=== PATIENT | male | born 1950 | race Caucasian/White ===

== ENCOUNTER 2018-10-28 10:58 | Emergency (ER) | payer BC, MEDICAID ==
[~2018-10-28] VITALS: Ht 190.5 cm; Wt 104.3 kg
[2018-10-28 11:56] LABS: Basophils # (auto) 0 uL; Eosinophils # (auto) 0 uL; Lymphocytes # (auto) 0.7 uL; Mean Corpuscular Hemoglobin 30.9 pg (28.0-32.0); Mean Corpuscular Volume 92.1 fL (80.0-100.0); Monocytes # (auto) 0.7 uL; Neutrophils # (auto) 8.9 uL; White Blood Cell 10.3 10^3/uL (4.4-10.8)
[2018-10-28 11:58] LABS: Basophils % (auto) 0.2 % (0.0-2.0); Eosinophils % (auto) 0.2 % (0.0-7.0); Hematocrit 53.8 % (41.0-53.0); Lymphocytes % (auto) 6.5 % (10.0-50.0); Mean Corpuscular Hgb Conc. 33.5 g/dL (32.0-36.0); Monocytes % (auto) 6.7 % (0.0-12.0); Neutrophils % (auto) 86.4 % (37.0-80.0); Nucleated Red Blood Cells % 0.4 %; Platelet Count (auto) 170 10^3/uL (140-450); Red Blood Cells 5.84 10^6/uL (4.5-5.90); Red Cell Distribution Width 13.3 % (11.8-14.3)
[2018-10-28 12:05] LABS: Urine Bacteria NONE SEEN /hpf (None Seen); Urine Blood TRACE /uL (Negative); Urine Hyaline Cast FEW /lpf (0 - 2); Urine Mucus FEW (None Seen); Urine Specific Gravity 1.029 (1.001-1.035); Urine WBC 1 /hpf (0 - 3)
[2018-10-28 12:09] LABS: Calcium 9.1 mg/dL (8.5-10.1)
[2018-10-28 12:12] LABS: BUN/Creatinine Ratio 10.2; Bilirubin, Total 1.1 mg/dL (0.2-1.0); Total Protein 8.7 g/dL (6.4-8.2)
[2018-10-28] MEDS ORDERED: KETOROLAC TROMETH 60MG/2ML VIAL IM ONE (16:45)
[2018-10-28 18:40] VITALS: BP 148/85
== END 2018-10-28 18:42 | disposition home or self-care (01) ==
LOC: ER 10:58
DX: M48.02 Spinal stenosis, cervical region (principal); M54.5 Low back pain; M62.838 Other muscle spasm; I25.2 Old myocardial infarction; E78.5 Hyperlipidemia, unspecified; Z86.73 Personal history of transient ischemic attack (TIA), and cerebral infarction without residual deficits
CPT/HCPCS: 36415; 71045; 72125; 80053; 81001; 84484; 85025; 93005; 96372; 99284; J1885

== ENCOUNTER 2022-04-01 19:31 | Emergency (ER) | payer BC ==
[~2022-04-01] VITALS: Ht 185.4 cm; Wt 106.6 kg
[2022-04-01] MEDS ORDERED: ASPirin 325 MG TAB PO ONE (20:00)
[2022-04-01 20:27] LABS: Basophils # (auto) 0.1 10 ^3/uL (0-0.2); Basophils % (auto) 0.8 % (0.0-2.0); Eosinophils # (auto) 0.3 10 ^3/uL (0-0.8); Hematocrit 45.3 % (41.0-53.0); Hemoglobin 15.9 g/dL (13.5-17.5); Lymphocytes # (auto) 1.7 10 ^3/uL (0.4-5.4); Lymphocytes % (auto) 18.8 % (10.0-50.0); Mean Corpuscular Hemoglobin 31.9 pg (28.0-32.0); Mean Corpuscular Hgb Conc. 35.1 g/dL (32.0-36.0); Mean Corpuscular Volume 90.9 fL (80.0-100.0); Monocytes # (auto) 0.6 10 ^3/uL (0-1.3); Monocytes % (auto) 6.7 % (0.0-12.0); Neutrophils # (auto) 6.5 10 ^3/uL (1.6-8.6); Neutrophils % (auto) 70.7 % (37.0-80.0); Red Blood Cells 4.98 10^6/uL (4.5-5.90); Red Cell Distribution Width 14.8 % (11.8-14.3); White Blood Cell 9.2 10^3/uL (4.4-10.8)
[2022-04-01 20:52] LABS: BUN/Creatinine Ratio 12.8; Magnesium 2.3 mg/dL (1.6-2.6)
[2022-04-01 20:55] LABS: Bilirubin, Total 0.7 mg/dL (0.2-1.0); Total Protein 7.2 g/dL (6.4-8.2)
[2022-04-01 23:22] LABS: Urine Bacteria NONE SEEN /hpf (None Seen); Urine Blood TRACE /uL (Negative); Urine Mucus FEW (None Seen); Urine Specific Gravity 1.026 (1.001-1.035); Urine WBC 1 /hpf (0 - 3)
[2022-04-02 00:45] VITALS: BP 145/89
== END 2022-04-02 01:00 | disposition home or self-care (01) ==
LOC: ER 19:31
DX: S00.83XA Contusion of other part of head, initial encounter (principal); R07.89 Other chest pain; M79.661 Pain in right lower leg; W06.XXXA Fall from bed, initial encounter; Y93.89 Activity, other specified; Y92.89 Other specified places as the place of occurrence of the external cause; Y99.8 Other external cause status
CPT/HCPCS: 36415; 70450; 71045; 80053; 81001; 82550; 83735; 83880; 84484; 85025; 93005; 93971

== ENCOUNTER 2024-09-25 03:14 | Inpatient (IN) | payer BC ==
[~2024-09-25] VITALS: Ht 185.4 cm; Wt 104.3 kg
--- NOTE | 2024-09-25 03:38 | ED.PDOC ---
History of Present Illness HPI Comments 74-year-old male brought in by EMS presents with a chief complaint of dizziness, lightheadedness, and near-syncope. According to EMS, patients HR drops to the point where he becomes dizzy and has a near-syncopal episode. Patients HR on the monitors shows a long sinus pause before going back to baseline. Patient states that he feels dizzy and lightheaded when these episodes occur. He states symptoms started suddenly this morning prior to arrival. Denies any recent illness. Denies any recent medication changes. No other symptoms or modifying factors present at this time. Past medical history includes coronary artery disease status post angioplasty, CVA with residual left-sided weakness. Time Seen by MD: 03:32 Primary Care Provider: SHIMA Gamino Notes: Medications, Allergies Allergies: Uncoded Allergies: BETA ALON (Allergy, Unknown, 07/31/22) Information Source: Emergency Med Personnel Mode of Arrival: EMS Severity: Moderate Timing: Minutes Duration: Since onset Prehospital treatment: None Vital Signs Vital Signs Date Time Temp Pulse Resp B/P (MAP) Pulse Ox O2 Delivery O2 Flow Rate FiO2 09/25/24 05:10 138/74 09/25/24 05:00 85 14 94 09/25/24 04:13 97.9 97.9 09/25/24 04:13 Nasal Cannula* 5 40 Physical Exam General: Awake, lethargic. Skin: Skin in warm, dry and intact. Appropriate color for ethnicity. Nailbeds pink with no cyanosis. HEENT: The head is normocephalic and atraumatic. Conjunctivae are clear without exudates or hemorrhage. Sclera is non-icteric. EOM are intact. No signs of nystagmus. Eyelids are normal in appearance without swelling or lesions. Oral mucosa is pink and moist Neck: The neck is supple with normal range of motion. No JVD. Cardiac: Irregular rhythm, normal rate with intermittent sinus pauses. No mur murs, gallops, or rubs are auscultated. Respiratory: No signs of respiratory distress. Lung sounds are clear in all lobes bilaterally without rales, ronchi, or wheezes. Abdominal: Abdomen is soft, non-tender without distention. Bowel sounds are present and normoactive in all four quadrants. Extremities: Upper and lower extremities are atraumatic in appearance without deformity or edema. Neurological: The patient is awake, alert and oriented to person, place, and time with normal speech. Speech is clear. There is no facial asymmetry. Psychiatric: Appropriate mood and affect. Patient is pleasant and making jokes throughout the interview and examination. Good judgement and insight. No visual or auditory hallucinations. Review of Systems: REVIEW OF SYSTEMS: No fever, no chills, or fatigue HEENT: No sore throat, no earache, no congestion, no neck pain. Cardiac: No chest pain. No palpitations. Lungs: No shortness of breath, no cough. GI: No nausea, no vomiting, no diarrhea, no constipation, no abdominal pain : No dysuria, frequency, or urgency. No hematuria. Musculoskeletal: No joint pain , no joint swelling, no extremity edema. Skin: No rash, no itching. Neuro: No headache, positive dizziness, positive weakness, positive syncope, no weaknes Past Medical History PAST MEDICAL HISTORY: AFIB, CAD, CVA, High Lipids, HTN, NV Surgical History: PTCA Family History Family History: No family hx of Heart kimberly, No family hx of HTN Social History Smoker: Non-Smoker Alcohol: Denies ETOH Use Drugs: Denies Drug Use Lives In: Home Was a procedure done? Was a procedure done?: No EKG EKG : Pulse Rate (adult): [address] [employer]: Normal Cardiac Rhythm: SB Block: RBBB Hypertrophy: None ST: Normal Differential Dx Considerations may include: Symptomatic bradycardia, ACS, anemia, pulmonary embolism, CHF exacerbation, sick sinus syndrome, electrolyte imbalance, other X-Ray, Labs, Meds, VS Vital Signs Date Time Temp Pulse Resp B/P (MAP) Pulse Ox O2 Delivery O2 Flow Rate FiO2 09/25/24 05:10 138/74 09/25/24 05:00 85 14 125/75 (92) 94 09/25/24 04:30 56 13 136/78 (97) 98 09/25/24 04:21 45 09/25/24 04:13 97.9 90 14 124/76 (92) 100 97.9 09/25/24 04:13 90 14 100 Nasal Cannula* 5 40 09/25/24 04:10 124/76 09/25/24 04:10 90 14 124/76 09/25/24 04:05 98.6 40 13 98.6 09/25/24 04:00 52 09/25/24 03:41 45 09/25/24 03:20 99.7 81 16 137/88 (104) 96 Lab Test 09/25/24 05:10 09/25/24 03:36 09/25/24 03:30 Range/Units White Blood Count 8.9 10.3 4.4-10.8 10^3/uL Red Blood Count 4.65 4.97 4.5-5.90 10^6/uL Hemoglobin 14.7 15.7 13.5-17.5 g/dL Hematocrit 43.2 46.0 41.0-53.0 % Mean Corpuscular Volume 92.8 92.6 80.0-100.0 fL Mean Corpuscular Hemoglobin 31.6 31.7 28.0-32.0 pg Mean Corpuscular Hemoglobin Concent 34.1 34.2 32.0-36.0 g/dL Red Cell Distribution Width 14.5 H 14.4 H 11.8-14.3 % Platelet Count 143 184 140-450 10^3/uL Mean Platelet Volume 8.7 9.2 6.9-10.8 fL Neutrophils (%) (Auto) 79.2 57.0 37.0-80.0 % Lymphocytes (%) (Auto) 12.5 32.7 10.0-50.0 % Monocytes (%) (Auto) 6.9 7.2 0.0-12.0 % Eosinophils (%) (Auto) 0.9 2.3 0.0-7.0 % Basophils (%) (Auto) 0.5 0.8 0.0-2.0 % Neutrophils # (Auto) 7.1 5.8 1.6-8.6 10 ^3/uL Lymphocytes # (Auto) 1.1 3.4 0.4-5.4 10 ^3/uL Monocytes # (Auto) 0.6 0.7 0-1.3 10 ^3/uL Eosinophils # (Auto) 0.1 0.2 0-0.8 10 ^3/uL Basophils # (Auto) 0 0.1 0-0.2 10 ^3/uL Nucleated Red Blood Cells 0.0 0.1 % Prothrombin Time 11.9 H 11.7 9.3-11.8 sec Prothrombin Time INR 1.13 1.11 0.9-1.15 Activated Partial Thromboplast Time 28.3 24.5-34.5 SEC Hemoglobin A1c 5.9 H <5.7 % A1C Troponin I High Sensitivity 9 9 </=54 ng/L Triglycerides Level 132 < 150 mg/dL Cholesterol Level 209 H < 200 mg/dL LDL Cholesterol 136 H < 100 mg/dL HDL Cholesterol 51 40-59 mg/dL D-Dimer, Quantitative 0.87 H 0.0-0.49 mg/L FEU Sodium Level 141 136-145 mmol/L Potassium Level 3.5 3.5-5.1 mmol/L Chloride Level 106 98-107 mmol/L Carbon Dioxide Level 20 20-31 mmol/L Anion Gap 15 5-15 Blood Urea Nitrogen 21 9-23 mg/dL Creatinine 1.61 H 0.700-1.30 mg/dL Glomerular Filtration Rate Calc 44 >90 mL/min BUN/Creatinine Ratio 13.0 10.0-20.0 Serum Glucose 134 H 74-106 mg/dL Calcium Level 10.7 H 8.7-10.4 mg/dL Magnesium Level 1.9 1.6-2.6 mg/dL Total Bilirubin 0.8 0.2-1.0 mg/dL Aspartate Amino Transferase (AST) 15 13-40 U/L Alanine Aminotransferase (ALT) 14 7-40 U/L Alkaline Phosphatase 145 H 46-116 U/L Total Protein 7.2 5.7-8.2 g/dL Albumin 4.6 3.2-4.8 g/dL Thyroid Stimulating Hormone (TSH) 0.87 0.55-4.78 uIU/mL POC Glucose 142 H 70-106 mg/dl Current Medications Medications (Trade) Dose Ordered Sig/Nader Route Start Time Stop Time Status Last Admin Sodium Chloride 2,000 ml @ 1,000 mls/hr Q2H ONCE IV 09/25/24 03:45 09/25/24 05:44 DC 09/25/24 03:45 Midazolam HCl (Versed Injection) 2 mg ONCE ONCE IV 09/25/24 04:00 09/25/24 04:01 DC 09/25/24 04:09 Ondansetron HCl (Zofran) 4 mg ONCE ONCE IV 09/25/24 04:00 09/25/24 04:01 DC 09/25/24 04:00 Morphine Sulfate 4 mg ONCE ONCE IV 09/25/24 04:00 09/25/24 04:01 DC 09/25/24 04:10 Dopamine HCl/ Dextrose 250 ml @ 7.5 mls/hr Q24H ONCE IV 09/25/24 04:00 09/25/24 17:05 DC 09/25/24 04:10 Glucagon (Glucagen) 1 mg ONCE ONCE IV 09/25/24 05:15 09/25/24 05:16 DC 09/25/24 05:22 Time of 1ST Reevaluation: 04:02 Reevaluation 1ST: Unchanged Time of 2ND Reevaluation: 04:16 (Consulted with Dr. Rodriguez, he recommends that patient be admitted for pacemaker placement. ) Reevaluation 2ND: Unchanged Patient Education/Counseling: Diagnosis, Treatment, Prognosis Family Education/Counseling: No Family Present Departure 1 Departure Time of Disposition: 04:47 Impression: Primary Impression: PELON (acute kidney injury) Additional Impressions: Sick sinus syndrome Syncope Disposition: ADMITTED INPATIENT Admit to: ICU Condition: Stable Comments 74-year-old male who presented with atrial fibrillation with repeated, frequent pauses resulting in syncope, altered level of consciousness. Initially atropine was administered with no improvement of symptoms. Patient was placed on transcutaneous pacer at a rate of 60, 50 milliamps with good capture. Versed, morphine were administered for pain control, sedation. Considered intubating patient however there was concern for deterioration and hemo dynamic status, difficulty with extubation if patient is intubated at this time. Patient's blood pressure remained stable, no hypotension. The case was discussed with Dr. Rodriguez, , sampler pickup who recommended continued external pacing admit for permanent pacemaker placement. Additionally patient was started on dopamine drip which seemed to improve heart rate and reduced sinus pauses. Patient admitted for further treatment, evaluation and monitoring. I reviewed the following notes from the pt's past medical encounters: Most recent hospitalization, previous labs The following tests were ordered, and results were reviewed by me: Labs, EKG pending interpretation Additional information was gathered from interviewing the following independent historians: EMS I reviewed and agreed with the following test results read by other providers: Chest x-ray, agree with radiologist's interpretation I discussed treatments and results with medical personnel Dr. Thompson and Dr Santiago Critical Care Note Critical Care Time?: Yes (35 min-critical care time only) Critical care comment: Total critical care time: Approximately 35 minutes Due to a high probability of clinically significant, life threatening deterioration, the patient required my highest level of preparedness to intervene emergently and I personally spent this critical care time directly and personally managing the patient. This critical care time included obtaining a history; examining the patient; pulse oximetry; ordering and review of studies; arranging urgent treatment with development of a management plan; evaluation of patient's response to treatment; frequent reassessment; and, discussions with other providers. This critical care time was performed to assess and manage the high probability of imminent, life-threatening deterioration that could result in multi-organ failure. It was exclusive of separately billable procedures and treating other patients and teaching time. Please see my other sections and the rest of the note for further information on patient assessment and treatment. Stability Stability form required: No I personally scribed for PARVIZ RAYO MD ([email or web address]) on 09/25/24 at 03:38. Electronically submitted by Gilberto Romero ([email or web address]). I personally scribed for PARVIZ RAYO MD ([email or web address]) on 09/25/24 at 04:17. Electronically submitted by Gilberto Romero ([email or web address]). I personally scribed for PARVIZ RAYO MD ([email or web address]) on 09/25/24 at 04:21. Electronically submitted by Gilberto Romero ([email or web address]). PARVIZ RAYO MD Sep 25, 2024 03:38
[2024-09-25] MEDS: SODIUM CHLORIDE 0.9% 2,000 ML IV ONE (03:45)
[2024-09-25] MEDS: ONDANSETRON HCL 4 MG/2 ML VIAL IV ONE (04:00)
[2024-09-25] MEDS: DOPamine 1600MCG/ML D5W 250 ML IV ONE ×2 (04:03→04:10)
[2024-09-25] MEDS: MORPHINE SULFATE 4 MG/ML SYR/VIAL ONE (04:04)
[2024-09-25] MEDS: ONDANSETRON HCL 4 MG/2 ML VIAL ONE (04:04)
[2024-09-25 04:07] LABS: Basophils # (auto) 0.1 10 ^3/uL (0-0.2); Basophils % (auto) 0.8 % (0.0-2.0); Eosinophils # (auto) 0.2 10 ^3/uL (0-0.8); Eosinophils % (auto) 2.3 % (0.0-7.0); Hemoglobin 15.7 g/dL (13.5-17.5); Lymphocytes # (auto) 3.4 10 ^3/uL (0.4-5.4); Lymphocytes % (auto) 32.7 % (10.0-50.0); Mean Corpuscular Hemoglobin 31.7 pg (28.0-32.0); Mean Corpuscular Hgb Conc. 34.2 g/dL (32.0-36.0); Mean Corpuscular Volume 92.6 fL (80.0-100.0); Monocytes # (auto) 0.7 10 ^3/uL (0-1.3); Monocytes % (auto) 7.2 % (0.0-12.0); Neutrophils # (auto) 5.8 10 ^3/uL (1.6-8.6); Nucleated Red Blood Cells % 0.1 %; Platelet Count (auto) 184 10^3/uL (140-450); Red Blood Cells 4.97 10^6/uL (4.5-5.90); Red Cell Distribution Width 14.4 % (11.8-14.3); White Blood Cell 10.3 10^3/uL (4.4-10.8)
[2024-09-25] MEDS: ATROPINE SULF 0.5 MG/5ML SYR ONE (04:08)
[2024-09-25] MEDS: MIDAZOLAM HCL 2MG/2ML 2ml VIAL (1mg/ml) IV ONE ×2 (04:09→16:00)
[2024-09-25] MEDS: MIDAZOLAM HCL 2MG/2ML 2ml VIAL (1mg/ml) ONE (04:09)
[2024-09-25] MEDS: MORPHINE SULFATE 4 MG/ML SYR/VIAL IV ONE (04:10)
[2024-09-25 04:13] VITALS: PULSE 90; RESP 14; O2SAT 100
[2024-09-25 04:18] LABS: Alanine Aminotransferase 14 U/L (7-40); Albumin 4.6 g/dL (3.2-4.8); Alkaline Phosphatase 145 U/L (46-116); Anion Gap 15 (5-15); Aspartate Aminotransferase 15 U/L (13-40); Bilirubin, Total 0.8 mg/dL (0.2-1.0); Blood Urea Nitrogen 21 mg/dL (9-23); Calcium 10.7 mg/dL (8.7-10.4); Carbon Dioxide 20 mmol/L (20-31); Chloride 106 mmol/L (98-107); Glucose 134 mg/dL (74-106); Magnesium 1.9 mg/dL (1.6-2.6); Potassium 3.5 mmol/L (3.5-5.1); Sodium 141 mmol/L (136-145); Total Protein 7.2 g/dL (5.7-8.2)
[2024-09-25 04:27] LABS: INR 1.11 (0.9-1.15); Prothrombin Time 11.7 sec (9.3-11.8)
--- NOTE | 2024-09-25 04:48 | DVH ---
CHEST RADIOGRAPH Indication: cp Technique: Single frontal view of the chest was obtained Comparison: CHEST PORTABLE on DOS: 07/31/22 FINDINGS: Lines and Tubes: None Lungs: Bibasilar consolidation. Pleura: No effusion. No pneumothorax. Cardiomediastinal contours: Cardiomegaly. Bones: No acute osseous abnormality. Status post median sternotomy. IMPRESSION: 1. Bibasilar consolidation may reflect edema or pneumonia. 2. Cardiomegaly.
[2024-09-25] MEDS: GLUCAGON EMERG KIT 1mg/1ml IV ONE (05:22)
[2024-09-25] MEDS ORDERED: HEPARIN DRIP/D5W 100UNITS/ML 250 ML IV SCH (05:30)
[2024-09-25] MEDS ORDERED: MORPHINE SULFATE INJ 2 MG/ml SYRG IV PRN (05:30)
[2024-09-25] MEDS ORDERED: hydrALAZINE HCL 20 MG/ML VL IV PRN (05:30)
[2024-09-25] MEDS ORDERED: NITROGLYCERIN 0.4 MG SL TAB SL PRN (05:30)
[2024-09-25 05:39] LABS: Basophils # (auto) 0 10 ^3/uL (0-0.2); Basophils % (auto) 0.5 % (0.0-2.0); Eosinophils # (auto) 0.1 10 ^3/uL (0-0.8); Eosinophils % (auto) 0.9 % (0.0-7.0); Hematocrit 43.2 % (41.0-53.0); Hemoglobin 14.7 g/dL (13.5-17.5); Lymphocytes # (auto) 1.1 10 ^3/uL (0.4-5.4); Lymphocytes % (auto) 12.5 % (10.0-50.0); Mean Corpuscular Hemoglobin 31.6 pg (28.0-32.0); Mean Corpuscular Hgb Conc. 34.1 g/dL (32.0-36.0); Mean Corpuscular Volume 92.8 fL (80.0-100.0); Monocytes # (auto) 0.6 10 ^3/uL (0-1.3); Monocytes % (auto) 6.9 % (0.0-12.0); Neutrophils # (auto) 7.1 10 ^3/uL (1.6-8.6); Neutrophils % (auto) 79.2 % (37.0-80.0); Platelet Count (auto) 143 10^3/uL (140-450); Red Blood Cells 4.65 10^6/uL (4.5-5.90); Red Cell Distribution Width 14.5 % (11.8-14.3); White Blood Cell 8.9 10^3/uL (4.4-10.8)
[2024-09-25 05:59] LABS: INR 1.13 (0.9-1.15); Partial Thromboplastin Time 28.3 SEC (24.5-34.5); Prothrombin Time 11.9 sec (9.3-11.8)
[2024-09-25] MEDS: ATROPINE SULF 1 MG/10ml SYR IV ONE (06:00)
--- NOTE | 2024-09-25 06:02 | ECG ---
[facility] Test Date: 2024-09-25 Test Time: 06:00:42 Pat Name: SERGIO SIMON Department: ED Room: [address] [place] [address] A Gender: M Technology Sales Representative: AMRITA : 1950 Requested By: PARVIZ RAYO Order Number: [id number] Reading MD: Harish Hearn Measurements Intervals [place] Rate: 74 P: 16 OR: 100 QRS: -21 QRSD: 164 T: 96 QT: 443 QTc: 492 Interpretive Statements complete AV block. Junctional tachycardia. Right bundle branch block Left ventricular hypertrophy Baseline wander in lead(s) I,aVR,V3 Electronically Signed On 09-26-2024 16:23:24 PST by Harish Hearn Please click the below link to view image of tracing.
[2024-09-25] MEDS: FUROSEMIDE 40 MG/4 ML VIAL IV ONE (06:09)
[2024-09-25] MEDS: KETAMINE 50mg/ML 10ml Vial (500mg/10ml) IV ONE (07:04)
[2024-09-25 08:00] VITALS: PULSE 94; RESP 17; O2SAT 98
[2024-09-25] MEDS: HEPARIN SODIUM (PORCINE) 5000 UNITS/ML 1ML VIAL IV ONE (08:42)
[2024-09-25] MEDS: HEPARIN DRIP/D5W 100UNITS/ML 250 ML IV SCH (09:04)
--- NOTE | 2024-09-25 13:40 | DVHINCON2 ---
Date Seen: Sep 25, 2024 Referring Physician MD Daija Reason for Consultation Bradycardia, being externally paced History of Present Illness This is a 74-year-old male patient who presents to the emergency room with chief complaint of dizziness, lightheadedness, and diaphoresis that began at approximately 2:30 a.m. this morning. The patient reports feeling like he was going to pass out this morning and decided to call emergency medical services. The patient was brought into the emergency room for further evaluation. Initial twelve lead electrocardiogram reveals atrial fibrillation. A repeat twelve lead electrocardiogram captured atrial fibrillation with pause greater than 3 seconds. While reviewing cardiac cath technician, the patient was noted to go into multiple episodes of bradycardia with pauses exceeding 3 seconds and heart rate reaching as low as 25bpm. The patient was initiated on a dopamine drip in the emergency room. The patient was also initiated on transcutaneous pacing. At the time of assessment, the patient remains transcutaneously paced. Significant past medical history includes coronary artery disease status post PTCA x2 CAROLINE (on ASA), history myocardial infarction, atrial fibrillation (on Eliquis), bioprosthetic aortic valve replacement (originally done in 2013, revision in 2014), hypertension, dyslipidemia, CVA with right-sided weakness, and obesity. The patient reports his primary account service associate is . Past Medical History Past medical history reviewed. No other significant than mentioned above. Past Surgical History Aortic valve replacement in 2013, redone in 2015 Appendectomy Family History Family history reviewed. Social History Denies the use of tobacco, alcohol or illicit drugs. Allergies: Uncoded Allergies: BETA RADHA (Allergy, Unknown, 07/31/22) Home Meds Home medications reviewed. Current Medications Current Medications Medications (Trade) Dose Ordered Sig/Nader Route PRN Reason Start Time Stop Time Status Last Admin Nitroglycerin (Ntrostat Sublingual) 0.4 mg Q5MINP PRN SL FOR CHEST PAIN 09/25/24 05:30 Morphine Sulfate 2 mg Q30M PRN IV FOR CHEST PAIN 09/25/24 05:30 Heparin Sodium/ Dextrose 250 ml @ 12.276 mls/ hr [id number] IV 09/25/24 05:30 UNV Hydralazine HCl (Apresoline Injection) 10 mg Q6HP PRN IV SBP>160 or DBP>105 09/25/24 05:30 Ondansetron HCl (Zofran) 4 mg Q4HPRN PRN IV NAUSEA / VOMITING 09/25/24 06:30 Heparin Sodium/ Dextrose 250 ml @ 10 mls/hr Q24H IV 09/25/24 07:00 09/25/24 09:04 Review of Systems Constitutional: Generalized weakness Ears, Nose, & Throat: No symptom reported Eyes: No symptom reported Neurological: Syncope, lightheaded, diaphoresis Pulmonary/Respiratory: No symptoms reported Cardiovascular: No symptom reported Gastrointestinal: No symptom reported Genitourinary: No symptom reported Musculoskeletal: No symptom reported Skin: No symptom reported Psychiatric: No symptom reported Endocrine: No symptom reported Hematologic/Lymphatic: No symptom reported Vital Signs Vital Signs Date Time Temp Pulse Resp B/P (MAP) Pulse Ox O2 Delivery O2 Flow Rate FiO2 09/25/24 11:00 77 24 116/63 (80) 95 09/25/24 08:00 98.3 98.3 09/25/24 08:00 Nasal Cannula* 4 36 Labs/Diagnostic Data Labs Test 09/25/24 13:10 09/25/24 06:32 09/25/24 05:10 09/25/24 03:36 Range/Units Troponin I High Sensitivity 13 </=54 ng/L White Blood Count 8.9 4.4-10.8 10^3/uL Red Blood Count 4.65 4.5-5.90 10^6/uL Hemoglobin 14.7 13.5-17.5 g/dL Hematocrit 43.2 41.0-53.0 % Mean Corpuscular Volume 92.8 80.0-100.0 fL Mean Corpuscular Hemoglobin 31.6 28.0-32.0 pg Mean Corpuscular Hemoglobin Concent 34.1 32.0-36.0 g/dL Red Cell Distribution Width 14.5 H 11.8-14.3 % Platelet Count 143 140-450 10^3/uL Mean Platelet Volume 8.7 6.9-10.8 fL Neutrophils (%) (Auto) 79.2 37.0-80.0 % Lymphocytes (%) (Auto) 12.5 10.0-50.0 % Monocytes (%) (Auto) 6.9 0.0-12.0 % Eosinophils (%) (Auto) 0.9 0.0-7.0 % Basophils (%) (Auto) 0.5 0.0-2.0 % Neutrophils # (Auto) 7.1 1.6-8.6 10 ^3/uL Lymphocytes # (Auto) 1.1 0.4-5.4 10 ^3/uL Monocytes # (Auto) 0.6 0-1.3 10 ^3/uL Eosinophils # (Auto) 0.1 0-0.8 10 ^3/uL Basophils # (Auto) 0 0-0.2 10 ^3/uL Nucleated Red Blood Cells 0.0 % D-Dimer, Quantitative 0.87 H 0.0-0.49 mg/L FEU Sodium Level 141 136-145 mmol/L Potassium Level 3.5 3.5-5.1 mmol/L Chloride Level 106 98-107 mmol/L Carbon Dioxide Level 20 20-31 mmol/L Anion Gap 15 5-15 Blood Urea Nitrogen 21 9-23 mg/dL Creatinine 1.61 H 0.700-1.30 mg/dL Glomerular Filtration Rate Calc 44 >90 mL/min BUN/Creatinine Ratio 13.0 10.0-20.0 Serum Glucose 134 H 74-106 mg/dL Calcium Level 10.7 H 8.7-10.4 mg/dL Magnesium Level 1.9 1.6-2.6 mg/dL Total Bilirubin 0.8 0.2-1.0 mg/dL Aspartate Amino Transferase (AST) 15 13-40 U/L Alanine Aminotransferase (ALT) 14 7-40 U/L Alkaline Phosphatase 145 H 46-116 U/L Total Protein 7.2 5.7-8.2 g/dL Albumin 4.6 3.2-4.8 g/dL Thyroid Stimulating Hormone (TSH) 0.87 0.55-4.78 uIU/mL Test 09/25/24 03:30 Range/Units POC Glucose 142 H 70-106 mg/dl Assessment Symptomatic bradycardia secondary to sick sinus syndrome Coronary artery disease status post PTCA x2 CAROLINE (on Aspirin) Bioprosthetic aortic valve replacement (in 2013 with revision in 2014) Atrial fibrillation (on Eliquis) Hypertension Dyslipidemia History myocardial infarction Acute kidney injury CVA with right-sided weakness Prediabetes Obesity Plan/Recommendation We will continue with the following plan/recommendations (Dr. Aguirre): * Echocardiogram to evaluate cardiac function * Dopamine drip for chronotropic support * Can stop once temporary pacemaker inserted * Insert temporary transvenous pacemaker * Avoid AV veda blocking agents * [id number] VASc score: 6 points * Hold beta radha until post permanent pacemaker * Initiate Eliquis post permanent pacemaker insertion * Single antiplatelet therapy and lipid-lowering agent Patient seen and examined at bedside with . Given that the patient is having symptomatic bradycardia and has multiple documented pauses longer than 3 seconds, patient qualifies for permanent pacemaker insertion. Procedures discussed with the patient full detail including risks and benefits. Patient understands and is agreeable to undergo procedure. We will schedule the patient at first availability on 09/26/24. In the meantime, he will undergo a temporary transvenous pacemaker to be inserted by . Thank you for allowing us to care for this patient. Please call with any questions or concerns. Critical care time spent: 41 minutes This medical document was created using an electronic medical record system with voice recognition software and computerized dictation system. Although this doc ument has been carefully reviewed, there might still be some phonetic and typographical errors. Occasional wrong-word or ``sound-alike substitutions may have occurred due to the inherent limitations of voice recognition software. These areas are purely typographical due to imperfections of the software programs and do not reflect any compromise in the patient's medical care. Dontrell baker read the chart carefully and recognize, using context, where these substitutions have occurred. Plan discussed with: Patient Date of Service: Sep 25, 2024 Billing Provider: SARAH AGUIRRE MD Cardiology Common Codes: 76074-JSBHNNK INP/OBS CARE (High) Cardiology Consultation Codes: 57899-[id number] CONSULT <45MIN DEBORAH HINDS Sep 25, 2024 13:40
[2024-09-25 13:44] LABS: INR 1.15 (0.9-1.15); Prothrombin Time 12.1 sec (9.3-11.8)
[2024-09-25 14:01] LABS: Triglycerides 132 mg/dL (< 150)
[2024-09-25 14:03] LABS: HDL Cholesterol 51 mg/dL (40-59)
[2024-09-25 14:04] LABS: Cholesterol 209 mg/dL (< 200); LDL Cholesterol 136 mg/dL (< 100)
--- NOTE | 2024-09-25 15:01 | ECG ---
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
[2024-09-25] MEDS: LIDOCAINE 2%HCL (LOCAL ANESTH.) INJ 10ml MDV IJ ONE (16:00)
[2024-09-25] MEDS: fentaNYL CITRATE 100 MCG/2 ML VL IV ONE ×2 (16:00→16:10)
[2024-09-25 16:11] LABS: Urine Bacteria None Seen /hpf (None Seen)
[2024-09-25 16:41] LABS: Urine Blood 2+ /uL (Negative); Urine Clarity Clear (Clear); Urine Color Light-Yellow (Yellow); Urine Hyaline Cast FEW /lpf (0 - 2); Urine Protein, UAD Negative (Negative); Urine Specific Gravity 1.011 (1.001-1.035); Urine Urobilinogen Normal (Negative); Urine WBC 2 /hpf (0 - 3); Urine pH 5.5 (5.0-9.0)
--- NOTE | 2024-09-25 18:00 | DVH ---
EXAM: XY CHEST XRAY 1 VIEW CLINICAL HISTORY: s/p tranvenous pacemaker insertion TECHNIQUE: Single AP view of the chest WID: COMPARISON: XY CHEST XRAY 1 VIEW on DOS: 09/25/24 FINDINGS: Lines and tubes: Prior median sternotomy and cardiac valve prosthesis. Pacer leads project over the l eft perihilar region in the left upper quadrant . Right IJ pacer with the lead tip projecting over t he left heart. Chest: Mild cardiomegaly with mild prominence of the pulmonary vasculature, improved since prior. Calcified plaque projects over the aortic arch Linear bibasilar opacities, greater on the left, also improved since prior. There is no pneumothorax or significant pleural effusion. The osseous structures are grossly intact. IMPRESSION: 1. Placement of right IJ pacer with the lead tip projecting over the left heart. 2. No pneumothorax 3. Mild cardiomegaly with improved pulmonary edema
--- NOTE | 2024-09-25 18:25 | DVHSR ---
APPROVED REPORT EXAM: LIMITED Two-dimensional echocardiogram with contrast. Blood Pressure: 135/80 mmHg INDICATION cardiomegaly, evaluate EF RISK FACTORS Obesity: Height: 6'1, Weight: 225 DIMENSIONS LVDd (3.8-5.7cm)LA (2D)4.2 (1.9-4.0cm)Aortic Root (2.0-3.7cm) EF (%) 55.0 (55-70%)Rt. Atrium5.1 (1.9-4.0cm)Asc. Aorta cm Mitral Valve MitralMitral Stenosis E wave1.12m/sMV Mean GR.2mmHg A wave0.00m/sMV Peak GR.100mmHg E/A ratio0.02D MVAcm2 DECEL [id number] 1/2 Tim[place] Aortic Valve Aortic ValveAortic Stenosis V10.82m/Allen Mean GR.6mmHg V21.78m/Allen Peak GR.13mmHg Tricuspid Valve TR Velocity2.62m/s [id number] Other Information Quality : LimitedRhythm : Technically limited study due to pt being paced, pads covering plax/subs views Conclusion Normal left left ventricular size and dimension. Normal left ventricular systolic function with tra mated ejection fraction of 50%. There is a grade1 diastolic dysfunction. Normal right ventricular size and dimension. Normal right ventricular systolic function. Mildly dilated right and left atria. The aortic valve is mildly thickened it looks like it is bioprosthetic valve. No significant gradien t was noted. No significant regurgitation was noted. Mitral valve is mildly thickened there is mild mitral valve regurgitation. There is mild tricuspid valve regurgitation. The pulmonary valve is grossly normal. No pericardial effusion.
--- NOTE | 2024-09-25 18:29 | DVHNC2 ---
Other Procedure Procedure A temporary venous pacemaker implantation. Indication Complete heart block. Anesthetic Local anesthesia using2 cc of 1% xylocaine to the right sternocleidomastoid junction. Prep After informed consent was obtained, risks, benefits, complications, alternatives were discussed in details with the patient who agrees to have the procedure done. Under aseptic technique the right neck was exposed the sternocleidomastoid triangle was identified. With the help of ultrasound we were able to map the right internal jugular vein. Local anesthetic was applied, before puncture was made to the anterior wall of the right internal jugular vein. After flashback is recognized. Needle was fixated and the wire was thread through the needle, then via modified Seldinger technique a six [place] Cordis catheter was advanced into the right internal jugular vein., this was then sutured to the neck using interrupted sutures. Finally a five Albanian balloon tip temporary venous pacemaker wire was advanced to the right ventricular outflow tract with a good capture and output. Patient was placed on asynchronous pacing VVI mode with a output left at three milliamps with a heart rate at 80 beats per minute with a good capture threshold and sensitivity. Success Procedure was successful. Chest x-ray confirmed the position of the pacemaker lead without evidence of pneumothorax or any complication. Informed consent obtained: Yes Risks, benefits, and alternati: Yes Date of Service: Sep 25, 2024 Billing Provider: SARAH AGUIRRE MD Common Visit Codes: [id number]-[id number] CARE 30-74 MIN SARAH AGUIRRE MD Sep 25, 2024 18:29
[2024-09-25 19:50] VITALS: O2SAT 93
[2024-09-26] VITALS (11 sets, daily range): BP systolic 128–155; BP diastolic 86–98; PULSE 70–83; RESP 14–20; TEMP 97.9–98.4; O2SAT 92–97
--- NOTE | 2024-09-26 01:17 | DVH ---
CHEST RADIOGRAPH Indication: PACE WIRE PLACEMENT Technique: Single frontal view of the chest was obtained COMPARISON: XY CHEST XRAY 1 VIEW on DOS: 09/25/24, XY CHEST XRAY 1 VIEW on DOS: 09/25/24, CHEST PORTABL E on DOS: 07/31/22, CXRP on DOS: 07/31/22, CHEST PORTABLE on DOS: 04/01/22 FINDINGS: Lines and Tubes: Right-sided PICC is seen with tip in the lower SVC. Lungs: Clear Pleura: No effusion. No pneumothorax. Cardiomediastinal contours: Unremarkable Bones: Sternal wires in place. IMPRESSION: 1. Right-sided PICC is seen with tip in the lower SVC.
[2024-09-26 04:11] LABS: Basophils # (auto) 0.1 10 ^3/uL (0-0.2); Basophils % (auto) 0.6 % (0.0-2.0); Eosinophils # (auto) 0.1 10 ^3/uL (0-0.8); Eosinophils % (auto) 0.9 % (0.0-7.0); Hematocrit 44.2 % (41.0-53.0); Lymphocytes # (auto) 1.3 10 ^3/uL (0.4-5.4); Lymphocytes % (auto) 14.3 % (10.0-50.0); Mean Corpuscular Hemoglobin 31.1 pg (28.0-32.0); Mean Corpuscular Hgb Conc. 33.8 g/dL (32.0-36.0); Monocytes # (auto) 0.8 10 ^3/uL (0-1.3); Monocytes % (auto) 8.5 % (0.0-12.0); Neutrophils # (auto) 6.7 10 ^3/uL (1.6-8.6); Neutrophils % (auto) 75.7 % (37.0-80.0); Nucleated Red Blood Cells % 0.1 %; Platelet Count (auto) 160 10^3/uL (140-450); Red Blood Cells 4.81 10^6/uL (4.5-5.90); Red Cell Distribution Width 14.7 % (11.8-14.3); White Blood Cell 8.9 10^3/uL (4.4-10.8)
[2024-09-26 04:21] LABS: Calcium 9.9 mg/dL (8.7-10.4); Chloride 104 mmol/L (98-107); Potassium 3.7 mmol/L (3.5-5.1); Sodium 140 mmol/L (136-145)
[2024-09-26 04:22] LABS: Anion Gap 8 (5-15); Carbon Dioxide 28 mmol/L (20-31)
[2024-09-26 04:27] LABS: BUN/Creatinine Ratio 11.5 (10.0-20.0); Blood Urea Nitrogen 21 mg/dL (9-23); Glucose 98 mg/dL (74-106)
--- NOTE | 2024-09-26 05:01 | DVHHP ---
ADMIT DATE: 09/25/2024 CHIEF COMPLAINT: Coming in for dizziness, sweating, feeling unwell. HISTORY OF PRESENT ILLNESS: This is a 74-year-old male with significant past medical history for coronary artery disease, hypertension, hyperlipidemia, CKD stage III, history of chronic atrial fibrillation, history of CVA with residual right-sided deficits, who presents to the Emergency Room with a complaint of dizziness, diaphoresis, disorientation and palpitations. The patient apparently was sleeping when he woke up in the middle of the night feeling symptoms specified above. The patient's symptoms were unrelenting. He denies any chest pain or shortness of breath, but did feel nausea with it, including dizziness and diaphoresis. The patient decided to call EMS and was brought in and was found to be in sinus bradycardia. The patient says that he otherwise has not been recently sick. He says he saw his wax molder about 2 months ago where his Coreg medication was doubled to 6.25 mg twice a day for blood pressure control. The patient otherwise denies any fevers or chills, chest pain or shortness of breath, has had lower extremity edema off and on and orthopnea occasionally. Denies any history of congestive heart failure. PAST MEDICAL HISTORY: Persistent atrial fibrillation, essential hypertension, hyperlipidemia, CKD stage III, CVA with residual right-sided deficits, coronary artery disease, history of aortic valve replacement. PAST SURGICAL HISTORY: Appendectomy in 2008, aortic valve replacement x2 with bovine valve. SOCIAL HISTORY: No tobacco, no alcohol, no illicit drugs. MEDICATIONS AT HOME: Per medical reconciliation. MEDICATION ALLERGIES: THE PATIENT HAS ADVERSE REACTIONS TO METOPROLOL CAUSING HALLUCINATIONS. REVIEW OF SYSTEMS: A 10-point review of system was covered with the patient and was negative with the exception to what is present in the history of present illness. PHYSICAL EXAMINATION: VITAL SIGNS: Temperature 97.9, pulse rate of 45, respiratory rate of 14, blood pressure 124/76, pulse ox about 100% on 5 liters nasal cannula oxygen. GENERAL: Seems to be alert, oriented x 4, not in acute distress male, sitting up in bed. HEENT: Normocephalic, atraumatic. Extraocular muscles are intact. Pupils are equally round, react to light and accommodation. Mucous membranes are moist. CARDIOVASCULAR: S1, S2 positive. Irregularly irregular rhythm. No rubs, gallops or murmurs. LUNGS: Seems to be clear to auscultation bilaterally. No wheezes, rhonchi or rales. ABDOMEN: Seems to be soft, nontender, nondistended. Positive bowel sounds. No guarding or rebound. EXTREMITIES: Lower extremities, no lower extremity edema, clubbing or cyanosis. NEUROLOGIC: No focal deficits. Cranial nerves testing 2-12 overall seems to be intact. LABORATORY WORKUP: Shows white count 8.9, H and H of 4 and 14, platelet count 143,000. Sodium 141, potassium 3.5, chloride 106, carbon dioxide 20, anion gap of 15, BUN of 21, creatinine 1.61, glucose of 134, calcium 9.7, magnesium 1.9, total bilirubin 0.8, AST of 15, ALT of 14, alkaline phosphatase 145. Troponins of 9 and repeat of 9. TSH of 0.87. D-dimer of 0.87. INR of 1.13. IMAGING: Chest x-ray shows: * Bibasilar consolidations that reflect edema or pneumonia. * Cardiomegaly. EKG: atrial fibrillation, ventricular rate of 45, right bundle-raj block with left ventricular hypertrophy physiology. DIAGNOSIS: Symptomatic bradycardia. SECONDARY DIAGNOSES: Essential hypertension, hyperlipidemia, chronic kidney disease stage III, persistent atrial fibrillation. PLAN: The patient apparently on arrival here did have periods of reduced heart rates, symptoms of lightheadedness, periods of reduced apparently consciousness per the ER physician's report. The patient was placed pacer pads and has been paced throughout his ER course. The patient was also started on dopamine drip, which will be continued on admission to the ICU. The patient will have a Cardiology consultation with Dr. Fracisco Ruiz. The patient will be maintained n.p.o. at this point in time. Heparin drip per pharmacy will be initiated for stroke prevention. The patient to have hydralazine 10 mg IV p.r.n. q. 6 hours for SBPs greater than 160. Zofran 4 mg IV p.r.n. for nausea and vomiting. The patient to have a.m. labs with CBC, BMP. The patient otherwise is a FULL CODE. Further recommendation will depend on the patient's progression. Daniel Zamora MD LM/CANELO/GREG TID: [id number] RECEIPT: [id number] [facility]ITALMartha
[2024-09-26] MEDS: SODIUM CHLORIDE 0.9% 1,000 ML IV SCH (08:03)
--- NOTE | 2024-09-26 10:44 | ECG ---
[facility] Test Date: 2024-09-25 Test Time: 03:41:25 Pat Name: SERGIO SIMON Department: ED Room: [address] [place] [address] A Gender: M Control Room Technician: ADRIAN : 1950 Requested By: PARVIZ RAYO Order Number: [id number] Reading MD: Harish Hearn Measurements Intervals [place] Rate: 45 P: 164 AR: 79 QRS: 71 QRSD: 139 T: 246 QT: 473 QTc: 410 Interpretive Statements atrial fibrillation. Ventricular standstill Right bundle branch block Repol abnrm suggests ischemia, lateral leads Artifact in lead(s) I,III,aVR,aVL,aVF and baseline wander in lead(s) I,III,aVR,aVL Electronically Signed On 09-26-2024 16:21:48 PST by Harish Hearn Please click the below link to view image of tracing.
--- NOTE | 2024-09-26 13:48 | ECG ---
[facility] Test Date: 2024-09-25 Test Time: 23:40:05 Pat Name: SERGIO SIMON Department: ED Room: [address] [place] [address] Gender: M Log Data Technician: ADRIAN : 1950 Requested By: PARVIZ RAYO Order Number: [id number] Reading MD: Harish Hearn Measurements Intervals [place] Rate: 73 P: 0 ID: 0 QRS: -52 QRSD: 162 T: 94 QT: 443 QTc: 489 Interpretive Statements Pacemaker spikes or artifacts Atrial fibrillation RBBB and LAFB LVH with secondary repolarization abnormality Baseline wander in lead(s) I,II,aVR Electronically Signed On 09-26-2024 16:31:22 PST by Harish Hearn Please click the below link to view image of tracing.
[2024-09-26] MEDS: IODIXANOL 320MG/ML 100ML BTL IV ONE (13:49)
[2024-09-26] MEDS: LIDOCAINE 2%HCL (LOCAL ANESTH.) INJ 20ML MDV ONE (13:49)
[2024-09-26] MEDS: fentaNYL CITRATE 100 MCG/2 ML VL ONE (13:49)
[2024-09-26] MEDS: MIDAZOLAM HCL 2MG/2ML 2ml VIAL (1mg/ml) ONE (13:49)
[2024-09-26] MEDS: VANCOMYCIN 1GM/250ML KIT 200 ML IV ONE (13:50)
[2024-09-26] MEDS: VANCOMYCIN HCL 1000 MG VL ONE ×2 (13:50→15:11)
--- NOTE | 2024-09-26 14:06 | DVHPN2 ---
Progress Note - Dictate Date Seen: Sep 26, 2024 Medical Necessity Reason Pt with a Central, PICC or Fol: Yes Subjective Patient comfortable. Notes he felt better after goldberg placement. vital signs Vital Sign Date Time Temp Pulse Resp B/P (MAP) Pulse Ox O2 Delivery O2 Flow Rate FiO2 09/26/24 13:00 80 16 132/77 (95) 93 09/26/24 07:20 Room Air* 0 21 09/25/24 20:00 98.4 98.4 Total Intake and Output 09/25/24 09/25/24 09/26/24 15:00 23:00 07:00 Intake Total 112.65 ml 7.5 ml Output Total 600 ml 1300 ml Balance -487.35 ml -1292.5 ml medications Current Medications Medications Dose Ordered Sig/Nader Route Start Time Stop Time Status Last Admin Dose Admin Nitroglycerin 0.4 mg Q5MINP PRN SL 09/25/24 05:30 Morphine Sulfate 2 mg Q30M PRN IV 09/25/24 05:30 Heparin Sodium/ Dextrose 250 ml @ 12.276 mls/ hr [id number] IV 09/25/24 05:30 UNV Hydralazine HCl 10 mg Q6HP PRN IV 09/25/24 05:30 Ondansetron HCl 4 mg Q4HPRN PRN IV 09/25/24 06:30 Sodium Chloride 1,000 ml @ 100 mls/hr Q10H IV 09/26/24 08:00 09/26/24 08:03 100 MLS/HR objective General: Comfortable Cards: Paced rhythm Respiratory: Fine bibasilar crackles : Goldberg in place laboratory and microbiology Laboratory Tests 09/26/24 03:51 Test 09/26/24 03:51 Range/Units Serum Glucose 98 74-106 mg/dL Problem List 1. Sick Sinus Syndrome 2. CKD 3. Urinary Retention 4. Acute Respiratory Failure Assessment/Plan -Cardiology consulted, Dr. Peterson. -Temporary pacemaker placed, plan for permanent pacer placement 09/26 -NS @ 100mL/hr for PELON on CKD -Goldberg in place for urinary retention. Patient has a history of BPH. May require goldberg on DC with urology follow up. -Cardiac diet -Plan for inpatient PPM interrogation in AM -Full Code Plan discussed with: Patient TAHSARAH BETH VILLAGRAN DO Sep 26, 2024 14:06
--- NOTE | 2024-09-26 15:52 | DVHOP2 ---
Operative Report - 2 Report Details Date: 09/26/24 Preop Diagnosis: Sick sinus syndrome with a long pause associated with the symptoms of hypotension and near syncope. Postop Diagnosis: Successful implantation of dual-chamber pacemaker DDDR programming without complication. Temporary venous pacemaker was removed. Patient would need post pacemaker routine care before he gets discharged by tomorrow. Surgeon: Ronit Rodriguez MD Anesthesiologist: Conscious sedation using25 mcg of fentanyl as well as a mg IV midazolam. It was given under direct supervision of myself the primary automotive light mechanic as well as the attending nurses. Patient was monitored for total of45 minutes without obvious complication. Anesthesia: Local Consent: The patient was informed of the risks and benefits of the procedure. These include but are not limited to complications of anesthesia, postoperative infection, incomplete relief of symptoms, recurrence of symptoms, damage to blood vessels, nerves and tendons, deep venous thrombosis, pulmonary embolism and possible need for repeat surgery in the future. Indications for Surgery: This is a 74-year-old male patient who presents to the emergency room with chief complaint of dizziness, lightheadedness, and diaphoresis that began at approximately 2:30 a.m. this morning. The patient reports feeling like he was going to pass out this morning and decided to call emergency medical services. The patient was brought into the emergency room for further evaluation. Initial twelve lead electrocardiogram reveals atrial fibrillation. A repeat twelve lead electrocardiogram captured atrial fibrillation with pause greater than 3 seconds. While reviewing cardiac tech, the patient was noted to go into multiple episodes of bradycardia with pauses exceeding 3 seconds and heart rate reaching as low as 25bpm. The patient was initiated on a dopamine drip in the emergency room. The patient was also initiated on transcutaneous pacing. At the time of assessment, the patient remains transcutaneously paced. Significant past medical history includes coronary artery disease status post PTCA x2 CAROLINE (on ASA), history myocardial infarction, atrial fibrillation (on Eliquis), bioprosthetic aortic valve replacement (originally done in 2013, revision in 2014), hypertension, dyslipidemia, CVA with right-sided weakness, and obesity. The patient reports his primary automotive light mechanic is . Name of Procedure Performed 1. Venogram of the left subclavian vein and the axillary vein using left antecubital venous access. 2. Ultrasound-guided left subclavian venous access. 3. Successful implantation of dual-chamber pacemaker DDDR programming. 4. Conscious sedation using25 mcg of fentanyl as well as a mg IV midazolam. Procedure Details Procedure Details: Procedure note and vascular access: After informed consent was obtained, risks, benefits, complications, and alternatives were discussed in details with the patient who agrees to have the procedure done. Vancomycin1 g IV was given as preop prophylaxis, a strict sterile technique was used during the procedure, At the beginning of the procedure venogram was obtained using left antecubital vein vascular access and 10 cc of contrast followed by chasing of 20 cc normal saline, the left deltopectoral area was prepped and draped in regular sterile fashion. Patient received conscious sedation with25 mcg of fentanyl as well as a mg of midazolam under the direct supervision of the primary automotive light mechanic. Total of 20 cc of 1% xylocaine was instilled locally to the deltopectoral groove . Before 1.5 Inch transfer incision was made 1 cm below the medial portion of the mid left clavicle. Pacemaker pocket was created underneath the incision using blunt dissection of the deltopectoral fascia and subcutaneous tissue. Then with the help of fluoroscopic guidance as well as ultrasound guidance we were able to identify the location of the subclavian vein on the left side which was puncture directly with good blood flashback. A J-tip wire was then advanced all the way to the brachiocephalic SVC junction, an eight Latvian sheath was then with a dilator was used and was advanced over the wire to brachiocephalic vein under fluoroscopic guidance. RV lead was advanced and with the help of multiple shaped stylets were able to be parked in the right ventricular lead in the right ventricular apical area, then was attached to the rhythm analyzer electrodes, once it is confirmed to be in good position they were anchored using active fixation a 2nd assessment of threshold output sensitivity and impedance were done and confirmed adequate attachment to the myocardial tissue. After confirming a good threshold and output stylet was retracted and lead was secured to the deltopectoral muscle Using Ethibond 0 0 sutures. Then the peel-away sheath was removed the same wire was used and another sheath of six Latvian size was advanced through the distal part of the left subclavian vein followed which right atrial lead was advanced into the left atrial appendage the help of a curved stylet, after confirming position using checking electrodes. active fixation was made and lead was secured secured to the deltopectoral fascia using the same Ethibond suture., then both leads were connected to the generator, generator then was placed to the pocket, vancomycin solution was used to irrigate the pacemaker pocket, then vancomycin powder was sprayed inside the pocket before multilevel suturing was done involving the deltopectoral fascia the subcutaneous fascia finally the cutaneous layer. Using Callahan Vicryl 2-0, 3-0 and finally 4.0 respectively. Then a Steri-Strips was placed over the wound and also Dermabond micro gel., Manufacture Specifics of the leads and generator were as follows: 1. Right atrial lead soleus S45 reference# [id number] serial# [id number] [employer] [place]. . 2. Right ventricular lead soleus S53 reference# [id number] serial#[id number] [employer] [place] . 3. Generator was a door eight DR-T reference #[id number] serial# [id number] [employer] [place] . The set up parameters of the pacemaker was as follows: 1. Atrial lead was sensing 0.4 millisecond. The capture of the right atrial lead threshold was 0.6 volts in the P wave at 1 mV with the impedance of 585 ohms, the RA sensitivity was set at 0.5 mV 2. Ventricular lead sensing was at 0.4 milliseconds with a capture threshold of 0.5 volts and R-wave at 10.6 mV with the impedance of663 ohms, RV sensitivity was set at 2 mV. 3. Program sitting was DDD-R minimal heart rate 75, maximum heart rate 130 beats per minute. With the av delay 150 millisecond on PVARP of 250 milliseconds. Impression and plan: 1. Successful implantation of dual-chamber pacemaker for sick sinus syndrome. 2. Patient would need chest x-ray to rule out normal thorax, would need a 2nd x- ray tomorrow morning for delayed Pneumothorax. 3. Patient would need interrogation of device tomorrow morning before she leaves the hospital. 4. Patient would follow post pacemaker implantation obstruction, involving seven day of prophylactic antibiotic. 5. Patient we will be seen in the pacemaker clinic in one week to 10 day time from her discharge. 6. Patient will need to resume all her antiplatelet therapy given recent history of stent implantation in June 12, 2024. Condition Good Disposition RONIT RODRIGUEZ MD Sep 26, 2024 15:52
--- NOTE | 2024-09-26 16:20 | DVH ---
EXAM: XY CHEST PORTABLE TECHNIQUE: Single frontal chest radiograph CLINICAL HISTORY: S/P PACEMAKER COMPARISON: XY CHEST XRAY 1 VIEW on DOS: 09/26/24, XY CHEST XRAY 1 VIEW on DOS: 09/25/24, XY CHEST XRAY 1 VIEW on DOS: 09/25/24 Findings/Impression: Frontal chest radiograph demonstrates no acute osseous or superficial soft tissue abnormalities. Left chest wall dual chamber pace maker. The trachea is midline. Cardiomegaly. No pneumothorax, pleural effusions, or consolidations.
[2024-09-26] MEDS ORDERED: APIX5TAB PO (18:49)
[2024-09-26] MEDS ORDERED: LOSA-534 PO (18:49)
[2024-09-26] MEDS ORDERED: AMLO1TAB23 PO (18:49)
[2024-09-26] MEDS: VANCOMYCIN 1GM/250ML KIT 200 ML IV SCH (22:28)
[2024-09-27] MEDS: ONDANSETRON HCL 4 MG/2 ML VIAL IV PRN (00:52)
[2024-09-27 01:00] VITALS: BP 142/97; PULSE 70; RESP 14; TEMP 97.8; O2SAT 100
[2024-09-27 05:00] VITALS: BP 128/81; PULSE 72; RESP 14; TEMP 97.9; O2SAT 95
[2024-09-27 06:12] LABS: Basophils # (auto) 0 10 ^3/uL (0-0.2); Basophils % (auto) 0.4 % (0.0-2.0); Eosinophils # (auto) 0.1 10 ^3/uL (0-0.8); Eosinophils % (auto) 1.8 % (0.0-7.0); Hematocrit 43.9 % (41.0-53.0); Hemoglobin 14.8 g/dL (13.5-17.5); Lymphocytes # (auto) 1.3 10 ^3/uL (0.4-5.4); Lymphocytes % (auto) 16.3 % (10.0-50.0); Mean Corpuscular Hemoglobin 31.5 pg (28.0-32.0); Mean Corpuscular Hgb Conc. 33.7 g/dL (32.0-36.0); Mean Corpuscular Volume 93.3 fL (80.0-100.0); Monocytes # (auto) 0.7 10 ^3/uL (0-1.3); Monocytes % (auto) 8.9 % (0.0-12.0); Neutrophils # (auto) 5.8 10 ^3/uL (1.6-8.6); Neutrophils % (auto) 72.6 % (37.0-80.0); Platelet Count (auto) 149 10^3/uL (140-450); Red Blood Cells 4.71 10^6/uL (4.5-5.90); Red Cell Distribution Width 14.2 % (11.8-14.3); White Blood Cell 8.1 10^3/uL (4.4-10.8)
[2024-09-27 06:52] LABS: Anion Gap 7 (5-15); Carbon Dioxide 27 mmol/L (20-31); Chloride 106 mmol/L (98-107); Potassium 3.9 mmol/L (3.5-5.1); Sodium 140 mmol/L (136-145)
[2024-09-27 06:53] LABS: Calcium 9.6 mg/dL (8.7-10.4)
[2024-09-27 06:58] LABS: BUN/Creatinine Ratio 14.1 (10.0-20.0); Blood Urea Nitrogen 21 mg/dL (9-23)
[2024-09-27 07:06] LABS: Glucose 108 mg/dL (74-106)
--- NOTE | 2024-09-27 07:15 | DVHDS2 ---
New Physician D'charge PN Admitting Diagnosis Admitting Diagnosis bradycardia with pauses Discharge Diagnosis Successful implantation of dual-chamber pacemaker DDDR programming withoutcomplication.Temporary venous pacemaker was removed. Patient would need post pacemakerroutine care before he gets discharged by tomorrow. Operations or Procedures PPM placement, dual chamber Reason(s) For Hospitalization Surgery Hospital Course 74 M who comes to ER for lightheadedness and dizziness. He was noted to have bradycardia with long pauses. He was admitted and a temporary pacemaker was placed by cardiology at the bedside and the following day the patient underwent dual chamber cardiac pacemaker placement. He is post-op day 1 s/p PPM and doing well. HIs echo showed preserved LV function. Dopamine gtt has been stopped and patients lab data is acceptable. He will be discharged home as per cardiology clearance. [facility] to arrange for all outpt follow up. Treatment Plan Discharge Condition of Discharge Good Disposition Home Discharge Instructions Diet: Cardiac 2g Na,low cholest Activity: Light activity Medications: see med sheet Follow Up Care Follow Up/Referral: pcp cardio Discharge Statement: "Patient was advised to return to the ER or call 911 if any headaches, dizziness, shortness of breath, chest pain, abdominal pain, bleeding, fevers, or worsening of medical condition. Patient was counseled about treatment plan, medications, possible side effects, patientverbalized understanding. All questions were answered to the best of my ability. This discharge took greater then 30 minutes in planning, reviewing documentation, counseling the patient, and discussing with other team members." RAMBO LIZ MD Sep 27, 2024 07:15
[2024-09-27] MEDS ORDERED: DOXY1CAP58 PO (07:18)
[2024-09-27 08:00] VITALS: PULSE 70; RESP 14; O2SAT 95
[2024-09-27] MEDS ORDERED: PANT1INJ3 IV (08:20)
[2024-09-27] MEDS ORDERED: PANT40TA2 PO (08:20)
[2024-09-27 09:00] VITALS: BP 159/89; PULSE 70; RESP 20; TEMP 98.2; O2SAT 95
--- NOTE | 2024-09-27 09:06 | DVH ---
CHEST RADIOGRAPH Indication: post ppm placement Technique: Single frontal view of the chest was obtained Comparison: XY CHEST PORTABLE on DOS: 09/26/24, XY CHEST XRAY 1 VIEW on DOS: 09/26/24 FINDINGS: Lines and Tubes: There is a dual lead pacer in the left chest wall. There are midline sternotomy wir es. Lungs: No obvious lung consolidation.. Pleura: No effusion.No pneumothorax. Cardiomediastinal contours: Cardiac silhouette is enlarged. There is a prosthetic cardiac valve. Pulmonary vasculature: Prominence of the central pulmonary vasculature and cephalized pulmonary vasc ular flow. Bones: No acute osseous abnormality. IMPRESSION: 1. Cardiomegaly with pulmonary vascular congestion. HS:Y
--- NOTE | 2024-09-27 11:24 | DVHPN2 ---
Consult Progress Note Subjective Patient reports: Feels better Other Systems: Left arm sling in place Objective vital signs Vital Sign Date Time Temp Pulse Resp B/P (MAP) Pulse Ox O2 Delivery O2 Flow Rate FiO2 09/27/24 09:00 98.2 70 20 159/89 (112) 95 98.2 09/26/24 20:30 Room Air* 0 21 Total Intake and Output 09/26/24 09/26/24 09/27/24 15:00 23:00 07:00 Intake Total 450 ml Output Total 1100 ml Balance -650 ml medications Current Medications Medications Dose Ordered Sig/Nader Route Start Time Stop Time Status Last Admin Dose Admin Nitroglycerin 0.4 mg Q5MINP PRN SL 09/25/24 05:30 Morphine Sulfate 2 mg Q30M PRN IV 09/25/24 05:30 Heparin Sodium/ Dextrose 250 ml @ 12.276 mls/ hr [id number] IV 09/25/24 05:30 UNV Hydralazine HCl 10 mg Q6HP PRN IV 09/25/24 05:30 Ondansetron HCl 4 mg Q4HPRN PRN IV 09/25/24 06:30 09/27/24 10:21 4 MG Sodium Chloride 1,000 ml @ 100 mls/hr Q10H IV 09/26/24 08:00 09/27/24 04:00 100 MLS/HR Examination: GENERAL:Normal, LUNGS:Normal, CVS:Normal, NEURO:Normal laboratory and microbiology Laboratory Tests 09/27/24 05:35 Test 09/27/24 05:35 Range/Units Serum Glucose 108 H 74-106 mg/dL Problem List/Assessment/Plan Problem List/Assessment/Plan Symptomatic bradycardia secondary to sick sinus syndrome s/p dual-chamber permanent pacemaker insertion Coronary artery disease status post PTCA x2 CAROLINE (on Aspirin) Bioprosthetic aortic valve replacement (in 2013 with revision in 2014) Atrial fibrillation (on Eliquis) Hypertension Dyslipidemia History myocardial infarction Acute kidney injury CVA with right-sided weakness Prediabetes Obesity Plan/Recommendation (Dr. Aguirre): The patient underwent a successful implantation of a dual-chamber permanent pacemaker (Biotronik) insertion on 09/26/24. A repeat chest x-ray this morning reveals proper lead placement without evidence of pneumothorax. A pacemaker interrogation was done and confirms proper device function. We will recommend to resume patient's home medications including Eliquis, single antiplatelet therapy, and beta-radha. There is no further inpatient cardiac workup indicated at this time. The patient has been scheduled at to follow up in the outpatient clinic on 10/02/24 at 0830am for wound check, 10/29/24 at 1100am for pacemaker interrogation, and 11/05/24 at 1:45pm with . Thank you for allowing us to care for this patient. Please call with any questions or concerns. This medical document was created using an electronic medical record system with voice recognition software and computerized dictation system. Although this document has been carefully reviewed, there might still be some phonetic and typographical errors. Occasional wrong-word or ``sound-alike substitutions may have occurred due to the inherent limitations of voice recognition software. These areas are purely typographical due to imperfections of the software programs and do not reflect any compromise in the patient's medical care. Please read the chart carefully and recognize, using context, where these substitutions have occurred. Plan discussed with: Patient Date of Service: Sep 27, 2024 Billing Provider: SARAH AGUIRRE MD Common Visit Codes: 13711-[id number] INP/OBS CARE(HIGH) DEBORAH HINDS ORE MIXER Sep 27, 2024 11:24
[2024-09-27 13:00] VITALS: BP 139/82; PULSE 71; RESP 18; TEMP 98.2; O2SAT 95
[2024-09-27] MEDS ORDERED: ASPI-543 PO (15:37)
[2024-09-27 16:49] VITALS: BP 133/88; PULSE 74; RESP 18; TEMP 97.9; O2SAT 98
== END 2024-09-27 17:38 | disposition home or self-care (01) | DRG 242 ==
LOC: EDBD 03:14 → ER 03:14 → TELE 05:24 → TELE-WESTW 09-26 17:52
PROVIDERS: ADMIT Hospitalist; ATTEND Student in an Organized Health Care Education/Training Program
PROC: 5A1223Z Performance of Cardiac Pacing, Continuous (ICD-10-PCS; 2024-09-25)
PROC: 02PA3MZ Removal of Cardiac Lead from Heart, Percutaneous Approach (ICD-10-PCS; principal; 2024-09-26)
PROC: 0JH606Z Insertion of Pacemaker, Dual Chamber into Chest Subcutaneous Tissue and Fascia, Open Approach (ICD-10-PCS; 2024-09-26)
PROC: 02H63JZ Insertion of Pacemaker Lead into Right Atrium, Percutaneous Approach (ICD-10-PCS; 2024-09-26)
PROC: B517YZZ Fluoroscopy of Left Subclavian Vein using Other Contrast (ICD-10-PCS; 2024-09-26)
PROC: 02HK3JZ Insertion of Pacemaker Lead into Right Ventricle, Percutaneous Approach (ICD-10-PCS; 2024-09-26)
DX: I49.5 Sick sinus syndrome (principal); N17.0 Acute kidney failure with tubular necrosis; I69.351 Hemiplegia and hemiparesis following cerebral infarction affecting right dominant side; I48.19 Other persistent atrial fibrillation; E78.5 Hyperlipidemia, unspecified; R73.03 Prediabetes; E66.9 Obesity, unspecified; N18.30 Chronic kidney disease, stage 3 unspecified; I25.10 Atherosclerotic heart disease of native coronary artery without angina pectoris; R33.8 Other retention of urine; I12.9 Hypertensive chronic kidney disease with stage 1 through stage 4 chronic kidney disease, or unspecified chronic kidney disease; N40.1 Benign prostatic hyperplasia with lower urinary tract symptoms; Z79.01 Long term (current) use of anticoagulants; I25.2 Old myocardial infarction; Z98.61 Coronary angioplasty status; Z95.3 Presence of xenogenic heart valve; Z68.30 Body mass index [BMI] 30.0-30.9, adult
CPT/HCPCS: 33208; 33210; 36415; 71045; 80048; 80053; 80061; 81001; 82962; 83036; 83735; 84443; 84484; 85025; 85379; 85610; 85730; 86850; 86900; 86901; 87086; 93005; 93306; 96365; 96375; 99152; 99291; C1751; C1894; G0378; J0461; J2003; J2250; J2405; Q9967

== ENCOUNTER 2024-11-13 18:07 | Emergency (ER) | payer BC, MEDICARE ==
[~2024-11-13] VITALS: Ht 177.8 cm; Wt 104.5 kg
[~2024-11-13 18:07] MED LIST: AMLO1TAB23 PO; APIX5TAB PO; ASPI-543 PO; DOXY1CAP58 PO; LOSA-534 PO; PANT40TA2 PO
--- NOTE | 2024-11-13 18:13 | ECG ---
[facility] Test Date: 2024-11-13 Test Time: 18:09:24 Pat Name: SERGIO SIMON Department: er Room: Gender: M Jewel Bearing Turner: gp : 1950 Requested By: DARIO DRUMMOND Order Number: [id number] Reading MD: Harish Hearn Measurements Intervals [place] Rate: 79 P: 0 [place]: 0 QRS: -41 QRSD: 158 T: 83 QT: 415 QTc: 476 Interpretive Statements Atrial fibrillation Ventricular premature complex RBBB and LAFB Left ventricular hypertrophy Abnrm T, consider ischemia, anterolateral lds Electronically Signed On 11-15-2024 16:40:44 PST by Harish Hearn Please click the below link to view image of tracing.
--- NOTE | 2024-11-13 18:31 | ED.PDOC ---
History of Present Illness HPI Comments 74 y/o M, with a Hx of AFIB on [place], CAD, CVA w/right-sided deficits, GERD, HLD, HTN, NV, 2xPTCA, pacemaker, and obesity, is BIBA for c/o near-syncope, today. Per EMS report, patient endorses on having a near-syncopal episode, while at a buffet, after eating a large meal and experiencing room-spinning dizziness, this evening. Patient's vitals were noted to have been stable and within normal limits, with a blood glucose of 136 and 12lead EKG showing AFIB. At time of assessment, patient comments on having dizzy spells in the past and taking Meclizine, that he does not, currently, takes, to assist with it then. He also informs on having a pacemaker placed 6 weeks ago and receiving a medical clearance by his pelts skinner after seeing them for a followup appointment, last week. Patient denies having any chest pain, shortness of breath, fever, chills, nausea, vomiting, or other associated symptoms or modifiers at this time. Time Seen by MD: 18:10 Primary Care Provider: SHIMA Reviewed Notes: Nurses Notes, Mortgage Branch Manager Notes, Medications, Allergies Allergies: Coded Allergies: Metoprolol (Verified Allergy, Unknown, 11/13/24) Uncoded Allergies: BETA ALON (Allergy, Unknown, 07/31/22) Home Meds Active Scripts Aspirin (Aspir-Low) 81 Mg Tab, 81 MG PO DAILY for 30 Days, #30 TAB 2 Refills Prov:RAMBO LIZ MD 09/27/24 Doxycycline (Monohydrate) (Doxycycline) 100 Mg Cap, 100 MG PO BID for 7 Days, #14 CAP Prov:RAMBO LIZ MD 09/27/24 Reported Medications Pantoprazole Sodium Sesquihydr (Protonix) 40 Mg Tab, 20 MG PO DAILY for GASTROESOPHAGEAL REFLUX, #30 TAB 09/27/24 Amlodipine Besylate (Amlodipine Besylate) 10 Mg Tab, 1 TAB PO DAILY 09/26/24 Losartan Potassium (Losartan Potassium) 50 Mg Tab, 1 TAB PO DAILY 09/26/24 Apixaban Base (ELIQUIS) 5 Mg Tab, 1 TAB PO BID 09/26/24 Information Source: Patient, Emergency Med Personnel Mode of Arrival: EMS Severity: Moderate Timing: Hours Duration: Minutes Prehospital treatment: 12 Lead EKG, 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 Fixture 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 Past Medical History PAST MEDICAL HISTORY: AFIB, CAD, CVA (w/right-sided deficits), GERD, High Lipi ds, HTN, NV Past Medical History (Other): obesity Surgical History: Pacemaker, PTCA (2x) Family History Family History: No family hx of Heart kimberly, No family hx of HTN Social History Smoker: Non-Smoker Alcohol: Denies ETOH Use Drugs: Denies Drug Use Lives In: Home Cardiovascular: reports: others (near-syncope) All Other Systems: Reviewed and Negative (negative unless stated above or in HPI) Physical Exam General Appearance: No Apparent Distress, Obese HEENT: Normal ENT Inspection, Pharynx Normal, TMs Normal Neck: Full Range of Motion, Non-Tender, Normal, Normal Inspection Respiratory: Chest Non-Tender, Lungs Clear, No Accessory Muscle Use, No Respiratory Distress, Normal Breath Sounds Cardiovascular: Irregular (irregular irregular ), No Edema, No JVD, No Murmur, No Gallop, Normal Peripheral Pulses Breast Exam: Deferred Gastrointestinal: No Organomegaly, Non Tender, No Pulsatile Mass, Normal Bowel Sounds, Soft Genitalia: Deferred Pelvic: Deferred Rectal: Deferred Extremities: No calf tenderness, Normal capillary refill, Normal inspection, Normal range of motion, Non-tender, No pedal edema Musculoskeletal : Apperance: Normal Neurologic: Alert, social worker masters II-XII nml as Tested, No Motor Deficits, Normal Affect, Normal Mood, No Sensory Deficits Cerebellar Function: Normal Reflexes: Normal Skin: Dry, Normal Color, Warm Lymphatic: No Adenopathy Was a procedure done? Was a procedure done?: No EKG EKG : Pulse Rate (adult): 75 [place]: Normal Cardiac Rhythm: Afib Block: None Hypertrophy: None ST: Normal Differential Dx Considerations may include: AFIB, dehydration, arrhythmia, electrolyte imbalance, vasovagal response, vertigo X-Ray, Labs, Meds, VS Vital Signs Date Time Temp Pulse Resp B/P (MAP) Pulse Ox O2 Delivery O2 Flow Rate FiO2 11/13/24 18:31 75 11/13/24 18:09 79 11/13/24 18:07 98.0 86 18 160/82 (108) 96 Lab Test 11/13/24 20:10 11/13/24 19:08 Range/Units Troponin I High Sensitivity 7 7 </=54 ng/L White Blood Count 8.8 4.4-10.8 10^3/uL Red Blood Count 4.71 4.5-5.90 10^6/uL Hemoglobin 15.1 13.5-17.5 g/dL Hematocrit 43.4 41.0-53.0 % Mean Corpuscular Volume 92.1 80.0-100.0 fL Mean Corpuscular Hemoglobin 32.0 28.0-32.0 pg Mean Corpuscular Hemoglobin Concent 34.7 32.0-36.0 g/dL Red Cell Distribution Width 13.7 11.8-14.3 % Platelet Count 164 140-450 10^3/uL Mean Platelet Volume 8.4 6.9-10.8 fL Neutrophils (%) (Auto) 82.3 H 37.0-80.0 % Lymphocytes (%) (Auto) 9.7 L 10.0-50.0 % Monocytes (%) (Auto) 6.5 0.0-12.0 % Eosinophils (%) (Auto) 1.0 0.0-7.0 % Basophils (%) (Auto) 0.5 0.0-2.0 % Neutrophils # (Auto) 7.3 1.6-8.6 10 ^3/uL Lymphocytes # (Auto) 0.9 0.4-5.4 10 ^3/uL Monocytes # (Auto) 0.6 0-1.3 10 ^3/uL Eosinophils # (Auto) 0.1 0-0.8 10 ^3/uL Basophils # (Auto) 0 0-0.2 10 ^3/uL Nucleated Red Blood Cells 0.1 % Sodium Level 142 136-145 mmol/L Potassium Level 4.7 3.5-5.1 mmol/L Chloride Level 107 98-107 mmol/L Carbon Dioxide Level 27 20-31 mmol/L Anion Gap 8 5-15 Blood Urea Nitrogen 23 9-23 mg/dL Creatinine 1.60 H 0.700-1.30 mg/dL Glomerular Filtration Rate Calc 45 >90 mL/min BUN/Creatinine Ratio 14.4 10.0-20.0 Serum Glucose 102 74-106 mg/dL Calcium Level 9.5 8.7-10.4 mg/dL B-Type Natriuretic Peptide 153.26 0-100 pg/mL [facility] [id number] [place] [address] Ph: [phone] DIAGNOSTIC IMAGING Diagnostic Imaging Report : [id number] Signed PATIENT: SERGIO SIMON ACCT: [id number] UNIT: [id number] : 1950 LOC: ER ROOM / BED: / AGE / SEX: 74 / M ADM STATUS: REG ER SERVICE 13 ORDERING PHYSICIAN: DARIO DRUMMOND MD PROCEDURE(s): HWOCT - HEAD WITHOUT CONTRAST REASON: Dizziness ORDER NUMBER(s): [id number], ACCESSION NUMBER(s): [id number] EXAM: CT HEAD WITHOUT CONTRAST INDICATION: Dizziness TECHNIQUE: CT of the head without intravenous contrast. Radiation Dose Information: CT Dose: CTDI volume is 67.84 mGy. Dose-length product is 1200.56 mGy*cm The dose indicators for CT are the volume Computed Tomography (CT) Dose Index (CTDIvol) and the Dose Length Product (DLP), and are measured in units of mGy and mGy-cm, respectively. These indicators are not patient dose, but values generated from the CT scanner acquisition factors. The report includes radiation exposure data for exposures received during this examination. COMPARISON: HEAD WITHOUT CONTRAST on DOS: 04/01/22 FINDINGS: There is no evidence of acute intracranial hemorrhage, extra-axial collection, mass effect, midline shift, herniation or hydrocephalus. The ventricles, sulci and cisterns are age appropriate. The gongora-white differentiation is intact. Patchy periventricular and subcortical white matter hypoattenuation is nonspecific but may be related to small vessel ischemic disease. The visualized paranasal sinuses and mastoid air cells are clear. The surrounding soft tissues and osseous structures are unremarkable. IMPRESSION: 1. No acute intracranial hemorrhage 2. No CT findings of territorial ischemia. 3. No significant paranasal sinus or mastoid disease. ATED BY: SERGIO CLARK Jr., DO DICTATED DATE/TIME: 11/13/241843 SIGNED BY: SERGIO CLARK Jr., SIGNED DATE/TIME: 11/13/241843 CC: [place] [address] Ph: [phone] DIAGNOSTIC IMAGING Diagnostic Imaging Report : [id number] Signed PATIENT: SERGIO SIMON ACCT: [id number] UNIT: [id number] : 1950 LOC: ER ROOM / BED: / AGE / SEX: 74 / M ADM STATUS: REG ER SERVICE 20 ORDERING PHYSICIAN: DARIO DRUMMOND MD PROCEDURE(s): CXRP - CHEST PORTABLE REASON: dizziness ORDER NUMBER(s): [id number], ACCESSION NUMBER(s): [id number] CHEST RADIOGRAPH Indication: dizziness Technique: Single frontal view of the chest was obtained Comparison: XY CHEST XRAY 1 VIEW on DOS: 09/27/24, XY CHEST PORTABLE on DOS: 09/26/24, XY CHEST XRAY 1 VIEW on DOS: 09/26/24 FINDINGS: Lines and Tubes: Pacemaker in place unchanged Lungs: Findings suggest pulmonary vascular congestion Pleura: No effusion. No pneumothorax. Cardiomediastinal contours: Unimproved cardiomegaly Bones: No acute osseous abnormality. IMPRESSION: 1. Persistent for recurrent findings of cardiomegaly and pulmonary vascular congestion. ATED BY: SERGIO CLARK Jr., DO DICTATED DATE/TIME: 11/13/241910 SIGNED BY: SERGIO CLARK Jr., SIGNED DATE/TIME: 11/13/241910 CC: Time of 1ST Reevaluation: 18:40 Reevaluation 1ST: Unchanged Patient Education/Counseling: Diagnosis, Treatment Family Education/Counseling: No Family Present Additional Information I reviewed the following notes from patient's past medical encounters: ED physician note on 09/25/24, 07/31/22; hospital admission discharge summary on 11/28/23 The following tests were ordered, and results were reviewed by me: EKG, BMP, BNP, CBC, CXR, troponin, CT head w/o contast Additional Information was gathered from interviewing the following independent historians: EMT I reviewed and agreed with the following test results read by other providers: CXR, CT head w/o contrast I discussed treatment and results with medical personnel Departure 1 Departure Time of Disposition: 21:14 (Patient with an episode of near-syncope that has since resolved. Patient's workup so far is benign. Patient was offered admission the hospital however patient refused and wants to go home. We will discharge patient home with outpatient follow up) Impression: Primary Impression: Near syncope Additional Impression: Atrial fibrillation Qualified Codes: I48.11 - Longstanding persistent atrial fibrillation Disposition: HOME / SELF CARE / HOMELESS Condition: Stable Additional Instructions: Your workup today was benign. You can take Tylenol or Motrin as needed for pain. You should take your Meclizine as needed for dizziness. You should follow up with your regular doctor within 1 week. You should stay well rested and well hydrated. If your symptoms worsen or you have any other concerns please return to the emergency room. Discharged With: Self Critical Care Note Critical Care Time?: No Stability Stability form required: No Heart Score Heart Score: Heart Score Response (Comments) Value History Slightly Suspicious 0 EKG Normal 0 Age >65 2 Risk Factors >3 or Hx ASHD 2 Troponin Normal limit 0 Total 4 I personally scribed for DARIO DRUMMOND MD ([email or web address]) on 11/13/24 at 18:31. Electronically submitted by Jeffery Jolley ([email or web address]). I personally scribed for DARIO DRUMMOND MD (FRANCISCORCO) on 11/13/24 at 18:53. Electronically submitted by Jeffery Jolley ([email or web address]). I personally scribed for DARIO DRUMMOND MD (FRANCISCORCO) on 11/13/24 at 19:11. Electronically submitted by Jeffery Jolley ([email or web address]). I personally scribed for DARIO DRUMMOND MD ([email or web address]) on 11/13/24 at 20:34. Electronically submitted by Jeffery Jolley ([email or web address]). I personally scribed for DARIO DRUMMOND MD ([email or web address]) on 11/13/24 at 21:01. Electronically submitted by Jeffery Jolley ([email or web address]). DARIO DRUMMOND MD Nov 13, 2024 18:31
--- NOTE | 2024-11-13 18:46 | DVH ---
EXAM: CT HEAD WITHOUT CONTRAST INDICATION: Dizziness TECHNIQUE: CT of the head without intravenous contrast. Radiation Dose Information: CT Dose: CTDI volume is 67.84 mGy. Dose-length product is 1200.56 mGy*cm The dose indicators for CT are the volume Computed Tomography (CT) Dose Index (CTDIvol) and the Dose Length Product (DLP), and are measured in units of mGy and mGy-cm, respectively. These indicators are not patient dose, but values generated from the CT scanner acquisition factors. The report includes radiation exposure data for exposures received during this examination. COMPARISON: HEAD WITHOUT CONTRAST on DOS: 04/01/22 FINDINGS: There is no evidence of acute intracranial hemorrhage, extra-axial collection, mass effect, midline s hift, herniation or hydrocephalus. The ventricles, sulci and cisterns are age appropriate. The gongora-white differentiation is intact. Patchy periventricular and subcortical white matter hypoattenuation is nonspecific but may be related to small vessel ischemic disease. The visualized paranasal sinuses and mastoid air cells are clear. The surrounding soft tissues and osseous structures are unremarkable. IMPRESSION: 1. No acute intracranial hemorrhage 2. No CT findings of territorial ischemia. 3. No significant paranasal sinus or mastoid disease.
--- NOTE | 2024-11-13 19:13 | DVH ---
CHEST RADIOGRAPH Indication: dizziness Technique: Single frontal view of the chest was obtained Comparison: XY CHEST XRAY 1 VIEW on DOS: 09/27/24, XY CHEST PORTABLE on DOS: 09/26/24, XY CHEST XRAY 1 VIEW on DOS: 09/26/24 FINDINGS: Lines and Tubes: Pacemaker in place unchanged Lungs: Findings suggest pulmonary vascular congestion Pleura: No effusion. No pneumothorax. Cardiomediastinal contours: Unimproved cardiomegaly Bones: No acute osseous abnormality. IMPRESSION: 1. Persistent for recurrent findings of cardiomegaly and pulmonary vascular congestion.
[2024-11-13 19:33] LABS: Basophils # (auto) 0 10 ^3/uL (0-0.2); Basophils % (auto) 0.5 % (0.0-2.0); Eosinophils # (auto) 0.1 10 ^3/uL (0-0.8); Hematocrit 43.4 % (41.0-53.0); Hemoglobin 15.1 g/dL (13.5-17.5); Lymphocytes # (auto) 0.9 10 ^3/uL (0.4-5.4); Lymphocytes % (auto) 9.7 % (10.0-50.0); Mean Corpuscular Hgb Conc. 34.7 g/dL (32.0-36.0); Mean Corpuscular Volume 92.1 fL (80.0-100.0); Monocytes # (auto) 0.6 10 ^3/uL (0-1.3); Monocytes % (auto) 6.5 % (0.0-12.0); Neutrophils # (auto) 7.3 10 ^3/uL (1.6-8.6); Neutrophils % (auto) 82.3 % (37.0-80.0); Nucleated Red Blood Cells % 0.1 %; Platelet Count (auto) 164 10^3/uL (140-450); Red Blood Cells 4.71 10^6/uL (4.5-5.90); Red Cell Distribution Width 13.7 % (11.8-14.3); White Blood Cell 8.8 10^3/uL (4.4-10.8)
[2024-11-13 19:43] LABS: Potassium 4.7 mmol/L (3.5-5.1); Sodium 142 mmol/L (136-145)
[2024-11-13 19:44] LABS: Anion Gap 8 (5-15); Carbon Dioxide 27 mmol/L (20-31)
[2024-11-13 19:45] LABS: Calcium 9.5 mg/dL (8.7-10.4)
[2024-11-13 19:49] LABS: BUN/Creatinine Ratio 14.4 (10.0-20.0); Blood Urea Nitrogen 23 mg/dL (9-23); Glucose 102 mg/dL (74-106)
[2024-11-13 19:50] LABS: Chloride 107 mmol/L (98-107)
[2024-11-13] MEDS ORDERED: MECL12.586 PO (23:54)
[2024-11-14 00:01] VITALS: PULSE 70; RESP 16; O2SAT 100
[2024-11-14 00:02] VITALS: BP 140/93; PULSE 70; RESP 16; TEMP 97.9; O2SAT 100
== END 2024-11-14 00:08 | disposition home or self-care (01) ==
LOC: EDBD 18:07 → EDUNIT# 18:07 → ER 18:17
DX: R55 Syncope and collapse (principal); I48.91 Unspecified atrial fibrillation; I10 Essential (primary) hypertension; E66.9 Obesity, unspecified; E78.5 Hyperlipidemia, unspecified; I25.10 Atherosclerotic heart disease of native coronary artery without angina pectoris; I25.2 Old myocardial infarction; K21.9 Gastro-esophageal reflux disease without esophagitis; R06.02 Shortness of breath; Z79.82 Long term (current) use of aspirin; Z79.899 Other long term (current) drug therapy; Z86.73 Personal history of transient ischemic attack (TIA), and cerebral infarction without residual deficits; Z95.0 Presence of cardiac pacemaker
CPT/HCPCS: 36415; 70450; 71045; 80048; 83880; 84484; 85025; 93005